=== PATIENT | male | born 1990 | race Caucasian/White ===

== ENCOUNTER 2022-10-10 08:50 | Emergency (ER) | payer OTHER, SELFPAY ==
[2022-10-10 09:00] VITALS: BP 149/75; PULSE 52; RESP 14; TEMP 36.6; O2SAT 97; BMI 38.5
--- NOTE | 2022-10-10 09:00 | XRR_ITS ---
PROCEDURE INFORMATION: Exam: XR Right Knee Exam date and time: 10/10/2022 9:36 AM Age: 31 years old Clinical indication: Injury or trauma; Fall; Blunt trauma; Knee; Right; Additional info: Trauma/injury/swelling TECHNIQUE: Imaging protocol: Radiologic exam of the Right knee. Views: 3 views. COMPARISON: No relevant prior studies available. FINDINGS: Bones/joints: There is fluid in the suprapatellar bursa. Patella is dislocated laterally. There is a 2 cm bony density projecting in the intercondylar notch of the femur could be fracture fragment off the patella. Soft tissues: Normal. XR/XR knee RT 3V* [id number] IMPRESSION: 1. The patella is dislocated laterally. 2. A 2 cm bony density projects on the intercondylar notch of the femur which may be fracture fragment off of the patella.
--- NOTE | 2022-10-10 09:01 | W.ED.LOWEXIN ---
Documented by User: THERESA Levin 10/10/22 12:47 HPI - Extremity Injury (Lower) General: Chief Complaint: Extremity Injury, Lower Stated Complaint: Knee Pain Time Seen by Provider: 10/10/22 08:54 Source: patient and EMS Mode of arrival: EMS Limitations: no limitations History of Present Illness: Patient is a 31-year-old male who presents to ED today evaluation of a right knee injury. Patient tells me 2 days ago he was walking in his house when he had his foot planted and he pivoted his right lower extremity. Patient states he immediately began noticing pain in his right knee but was able to continue to bear weight on the extremity throughout the evening. Patient states the following morning he began noticing worsening pain and limited weight bearing. He states last night when he rolled over in bed he heard a popping/grinding noise and when he woke up this morning he noticed quite a bit of discomfort in the knee and noticed fairly significant swelling. He reports he can no longer bear weight. He denies any other injuries or complaints at this time. complaint: knee injury Onset (ago): day(s) Injury: Right: knee Place: home Severity: moderate Relieving factors: immobilization Exacerbating factors: weight bearing, movement and palpation Associated symptoms: Reports inability to bear weight Other symptoms: none Review of Systems Const: Denies: fever(s), chills, body aches, fatigue or malaise Card: Denies: chest pain Resp: Denies: dyspnea GI: Denies: abdominal pain Musc: Reports: extremity swelling, joint pain (R knee) and joint swelling; Denies: neck pain, back pain, extremity pain or joint redness Skin/Breast: Denies: rash Neuro: Denies: numbness in extremities, weakness in extremities or sensory changes Physical Exam Const: COMMON NORMALS: no acute distress, patient oriented x3, no limitations and alert GENERAL APPEARANCE: cooperative NUTRITIONAL APPEARANCE: obese ORIENTATION/CONSCIOUSNESS: Yes awake, Yes oriented to person, Yes oriented to place and Yes oriented to time HENMT: COMMON NORMALS: normocephalic and atraumatic HEAD & SCALP: normal to inspection, normocephalic and atraumatic Resp: COMMON NORMALS: normal respiratory effort and clear to auscultation bilaterally AUSCULTATION: clear to auscultation bilaterally Cardio: COMMON NORMALS: regular rate and regular rhythm RATE: regular rate RHYTHM: regular rhythm Extremity: COMMON NORMALS: capillary refill normal GENERAL: Yes normal exam except as noted RIGHT LOWER EXTREMITY: Yes upper leg, Yes knee joint and Yes lower leg OTHER: pt has significant swelling to R knee joint and proximally and distally; compartments are still soft; I can feel what I believe to be his patella dislocated laterally but overall palpation of bony anatomy is difficult given the amount of swelling; ROM is limited secondary to swelling/pain; distal pulses and cap refill are normal along with sensation Neuro: F[place] COMA SCALE: document GCS findings [place] coma scale eye opening: Spontaneous [place] coma scale verbal response: Orientated [place] coma scale motor response: Obey commands [place] coma scale total score: 15 COMMON NORMALS: patient oriented x3, moves all extremities, no focal motor deficits and no sensory deficits noted SENSORIUM/ORIENTATION: Yes alert, Yes oriented to person, Yes oriented to place and Yes oriented to time Skin: COMMON NORMALS: no rashes or lesions noted GENERAL SKIN EXAM: no rashes or lesions noted TRAUMA: no lacerations or abrasions Course ED course: Patient with a lateral patellar dislocation. This will probably require conscious sedation for reduction. Dr. Chong will evaluate patient and assume care. Vital Signs: Vital signs: Vital Signs Temperature 97.8 F 10/10/22 09:00 Pulse Rate 58 L 10/10/22 09:31 Respiratory Rate 19 H 10/10/22 11:35 Blood Pressure 149/75 10/10/22 09:31 Pulse Oximetry 93 10/10/22 09:31 Oxygen Delivery Me thod 10/10/22 09:31 MDM - Extremity Injury (Lower) Medical Decision Making Dr. Chong evaluated patient and will assume care. Please refer to his note for procedural sedation/reduction portions. Lab Data Radiology Impressions Knee X-Ray 10/10/22 11:45 IMPRESSION: The patella is subluxed laterally but the position has improved since the previous radiographs. Discharge Plan Discharge Patient Disposition: Home Clinical Impression: Closed dislocation of right patella Condition: Stable Prescriptions: New hydrocodone-acetaminophen 5-325 mg tablet 1 tab PO Q6H PRN (Reason: pain) Qty: 10 0RF No Action Aleve 220 mg Tablet 660 mg PO BID PRN (Reason: Pain) Trent Back and Body 500-32.5 mg Tablet 2 tab PO Q6H PRN (Reason: Pain) Discharge Orders: Discharge ED (Routine); Ordered 10/10/22 Ordered By: Young Chong Referrals: Alec Fisher FNP [Primary Care Provider] - Discharge Diet: Usual diet Discharge Activity: Resume usual activity Patient Instructions: Opioid Safety, Pain Management Activity Restrictions/Additional Instructions: You were seen today for dislocated patella. We were able to reduce it because of length of time its been out it will not stay in place largely due to the amount of swelling. He should remain in the knee immobilizer nonweightbearing on the right leg with crutches. Case management make arrangements for follow-up with orthopedics. Coding Level of Care Code ED Exhaust And Muffler Fitter for Chg Fwd Exam Detailed Documented by User: Young Chong DO 10/10/22 12:55 HPI - Extremity Injury (Lower) General: Chief Complaint: Extremity Injury, Lower Stated Complaint: Knee Pain Time Seen by Provider: 10/10/22 08:54 Physical Exam Neuro: FAR[place] COMA SCALE: document GCS findings [place] coma scale total score: 15 Procedures Orthopedic Joint Reduction Joint #1: Time Out Performed: Yes Side: right Joint Reduction Location: knee/patella Analgesia: procedural sedation Technique used: direct manipulation Post-reduction neuro exam: intact Post-reduction vascular: intact Post Reduction X-Ray Obtained: Yes Post Reduction X-Ray Results: other (Position improved but continues to sublux out of position) Splint Applied: Yes Procedural Sedation Indication: fracture/dislocation reduction Fentanyl: IV Midazolam: IV Patient Tolerated Procedure: well Complications: none Interventions: airway repositioned Additional Comments: Patient had evidence of mild sleep apnea with conscious sedation. Jaw thrust maneuver used to maintain sats without any complications Course Vital Signs: Vital signs: Vital Signs Temperature 97.8 F 10/10/22 09:00 Pulse Rate 58 L 10/10/22 09:31 Respiratory Rate 19 H 10/10/22 11:35 Blood Pressure 149/75 10/10/22 09:31 Pulse Oximetry 93 10/10/22 09:31 Oxygen Delivery Me thod 10/10/22 09:31 MDM - Extremity Injury (Lower) Medical Decision Making Dr. Chong evaluated patient and will assume care. Please refer to his note for procedural sedation/reduction portions. Conscious sedation for reduction of patella can fully reduce it however it immediately subluxes out laterally and we not able to maintain it in good position. Patient was placed in knee immobilizer crutches nonweightbearing referral to orthopedics. Discussed with Dr. Zavaleta he concurs Medical Records I reviewed the patient's medical records. Lab Data I reviewed the patient's lab results. Radiology Impressions Knee X-Ray 10/10/22 11:45
[2022-10-10 09:31] VITALS: BP 149/75; PULSE 58; RESP 17; O2SAT 93
--- NOTE | 2022-10-10 09:47 | PC.PHAR ---
pt states he hasnt taken buspar 5mg tid last filled 04/15/22 30d/s and prozac 10mg hs last filled 04/20/22 30d/s states not taken for months
[2022-10-10 10:04] VITALS: RESP 18
[2022-10-10] MEDS: morphine 4 mg/mL SDV 1 mL IM (10:04)
[2022-10-10 11:35] VITALS: RESP 19
[2022-10-10] MEDS: midazolam 1 mg/mL INJ 2 mL 4 MG IVP (11:35)
[2022-10-10] MEDS: fentaNYL 50 mcg/mL INJ 2mL IVP (11:35)
--- NOTE | 2022-10-10 11:45 | XRR_ITS ---
PROCEDURE INFORMATION: Exam: XR Right Knee Exam date and time: 10/10/2022 11:46 AM Age: 31 years old Clinical indication: Screening exam; Post reduction TECHNIQUE: Imaging protocol: Radiologic exam of the Right knee. Views: 1 or 2 views. COMPARISON: CR XR knee RT 3V* [id number] 10/10/2022 9:36 AM FINDINGS: Bones/joints: The patella is subluxed laterally but the position has improved since the previous radiographs. No obvious fracture. Soft tissues: Normal. XR/XR knee RT 1-2V [id number] IMPRESSION: The patella is subluxed laterally but the position has improved since the previous radiographs.
[2022-10-10 12:51] VITALS: BP 120/74; PULSE 60; O2SAT 100
--- NOTE | 2022-10-10 13:59 | DCPLANNER ---
Addendum entered by Izzy Castellanos 10/12/22 13:35: Patient had a follow up appointment scheduled with ortho - patient did attend appointment. Original Note: care transitions manager had message to schedule a follow up appointment for patient with ortho. care transitions manager sent patients information to the front office staff at ortho. Patients information will be printed and reviewed. Clinic will call patient with appointment information.
== END 2022-10-10 12:54 | disposition home or self-care (01) ==
PROVIDERS: Emergency Provider Family Medicine; PCP Nurse Practitioner Family
DX: S83.004A Unspecified dislocation of right patella, initial encounter (principal); X50.1XXA Overexertion from prolonged static or awkward postures, initial encounter
CPT/HCPCS: 27560; 29530; 73560; 73562; 96372; 99285; E0114; J2250; J2270; J3010

== ENCOUNTER 2022-10-13 08:05 | Day surgery (SDC) | payer OTHER, SELFPAY ==
[2022-10-12 14:09] VITALS: BMI 38.5
[2022-10-13] VITALS (17 sets, daily range): BP systolic 102–153; BP diastolic 72–95; PULSE 67–93; RESP 14–19; TEMP 36.1–36.3; O2SAT 91–98
--- NOTE | 2022-10-13 | XR_ITS ---
WS: [id number] Right knee, C-arm fluoroscopy views, 10/13/2022 Clinical Data: ligament repair knee. or pic Comparison: Right knee, 10/10/2022 Findings: Dr. Zavaleta repaired a right knee ligament. XR/XR knee RT 1-2V [id number] Impression: Right knee ligament repair
[2022-10-13] MEDS: sodium chloride 0.9% 1,000 ML 30 ML IV (08:34)
[2022-10-13] MEDS: acetaminophen 500 mg Tablet 1000 MG PO (08:48)
[2022-10-13] MEDS: oxyCODONE 20 mg ER (12 HR) Tablet PO (08:48)
--- NOTE | 2022-10-13 08:55 | ANES.PREANE2 ---
Pre-Anesthetic Assessment Height/Weight: Height 1.88 m Weight 136.078 kg Temp Pulse Resp BP Pulse Ox O2 Del Method 97.1 F L 93 18 131/79 94 10/13/22 08:34 10/13/22 08:34 10/13/22 08:48 10/13/22 08:34 10/13/22 08:48 10/13/22 08:34 Preop Diagnosis: Patellar dislocation right knee Operation Date: 10/13/22 09:20 Proposed Procedures p Medial patellofemoral ligament reconstruction/ 08194 ,S83.004A(Right) - Santhosh Zavaleta MD Familial anesthetic complications: none Was Beta Mikey taken within 24 hours: N/A Was Clonidine taken within 24 hours: N/A Last intake: Intake Last Liquid Date 10/12/22 Last Liquid Time 20:00 Last Solid Date 10/12/22 Last Solid Time 20:00 Social No alcohol and No tobacco Exam alert, oriented x 3, clear to auscultation bilaterally and regular rate & rhythm Airway Submandibular: within normal limits Cervical ROM: within normal limits Mallampati: Class II Dentition: full History/ROS No significant history except as noted Anesthetic Plan ASA status: 1 Anesthesia: General and Regional (specify below) (adductor blk) Medications/Allergies Home Medications Medication Instructions Recorded Confirmed Last Taken Type aspirin-caffeine 500 mg-32.5 mg 2 tab PO Q6H PRN Pain 10/10/22 10/12/22 10/11/22 History tablet (Trent Back and Body) hydrocodone 5 mg-acetaminophen 325 1 tab PO Q6H PRN pain #10 tabs 10/10/22 10/13/22 10/13/22 07:20 Rx mg tablet naproxen sodium 220 mg tablet 660 mg PO BID PRN Pain 10/10/22 10/12/22 10/10/22 06:30 History (Aleve) Allergies Allergy/AdvReac Type Severity Reaction Status Date / Time Sulfa (Sulfonamide Allergy Mild ADR-Nausea Verified 10/13/22 08:25 Antibiotics) Current Medications Generic Name Dose Route Start Last Admin Trade Name Freq PRN Reason Stop Dose Admin Sodium Chloride 1,000 mls @ 30 mls/hr 10/13/22 08:30 10/13/22 08:34 Sodium Chloride 0.9% IV 10/14/22 08:29 30 mls/hr .Q24H BENOIT Administration Data Anesthesia Cardiac Studies: No Data to Display
--- NOTE | 2022-10-13 09:04 | W.PM.OPSUD ---
Surgery/Procedure H&P Update DATE OF PROCEDURE: October 13, 2022 DATE H&P PERFORMED: 10/12/22 H&P UPDATE INFORMATION: I have reviewed H&P completed within last 30 days PREOP DIAGNOSIS: Patellar dislocation right knee PLANNED PROCEDURE: Operation Date: 10/13/22 09:20 Proposed Procedures p Medial patellofemoral ligament reconstruction/ 95837 ,S83.004A(Right) - Santhosh Zavaleta MD
[2022-10-13] MEDS: ceFAZolin 2,000 MG in sodium chloride 0.9% (plus) 50 ML 100 MG IV (09:31)
--- NOTE | 2022-10-13 10:18 | ANES.PROC ---
Anesthesia Procedures Procedure/Date: 10/13/22 Nerve Block ^: Nerve Block 1: Main Anesthesia: general anesthesia Time Out Performed: Yes Consent: requested by attending/covering physician, from patient, risks and benefits reviewed and patient agrees to proceed Nerve block location: adductor canal (right) Anesthesia monitors applied: pulse oximetry, EKG, BP cuff and oxygen Nerve block position: supine Anesthetic Used: ropivicaine 0.5% Amount of anesthesia used (mL): 20 Ultrasound used to: recognize landmarks Nerve Stimulator Used?: No Interscalene/Femoral BLK: 4 stimuplex 21 g needle used for position and inplane approach Injection: neg aspiration of heme Patient Tolerated Procedure: well Complications: none
--- NOTE | 2022-10-13 12:03 | PM.OP ---
Operative Report Date of procedure: October 13, 2022 Pre-op diagnosis: Preop Diagnosis Patellar dislocation right knee Post-op diagnosis: same Post-op diagnosis: Right knee; Lateral instability patella, traumatic chondromalacia medial facet patella, complex tear lateral meniscus Procedure done: Right knee medial patellofemoral ligament reconstruction and medial retinacular repair, repair right lateral meniscus, chondroplasty medial facet patella Implants: Clark and Nephew 7 x 25 WOODARD screw; Clark and Nephew NovoStitch x1, Clark and Nephew Fast-Fix x3 Pathology: none sent Anesthesia: General and Nerve Block (Adductor canal block) Estimated blood loss (mL): 100 Complications: None Findings: Jj had clear instability of his patella to be manually dislocated with with the knee in extension. With arthroscopic portion of the procedure he had a substantial chondral defect of the medial facet of the patella involving the medial half of that facet with exposed subchondral bone. He had a complex tear of his lateral meniscus involving a horizontal cleavage tear beginning just medial to the popliteal hiatus and extending through the middle third of the lateral meniscus. There was a central unstable posteriorly based central flap. The horizontal cleavage went entirely to the peripheral margin. With the open portion of the procedure rent was noted in the vastus medialis insertion on the patella no significant ligamentous structure (MPFL) was identified to restrain lateral displacement of the patella Condition: stable Disposition: PACU Brief History: The patient is a 31-year-old male who sustained a patellar dislocation on 10/08/2022. He was seen in our emergency room were closed reduction was obtained however he had problems with recurrent instability despite bracing. He was taken to the operating room for reconstruction of his medial retinaculum and medial patellofemoral ligament to regain patellar instability. Diagnostic arthroscopy was performed to assess the status of the patella and trochlea with his history of a prolonged and recurrent dislocation and assess the status of the remainder of the knee. Procedure: The patient was taken to the operating room. He was given a adductor canal block and general anesthesia. He was given 2 g of Ancef. His right lower extremity was prepped and draped in the usual fashion. A timeout was performed. The knee was initially entered to the standard inferior medial and inferior lateral portal. The diagnostic portion of arthroscopy performed. The medial compartment was inspected and found to be healthy. The lateral compartment was was inspected revealing the complex horizontal cleavage tear in the lateral meniscus. The tear pattern was carefully inspected. It was found that the horizontal cleavage is is extended entirely back to capsule and that removal of all meniscus would result in essentially a loss of lateral meniscus. A small flap tear involving the central portion of the split was identified poor quality which was not thought to be compatible with repair. Initially an incisor shaver and Clark and Nephew Werewolf probe were used to debride back the unstable central flap. After removal of this flap we were left with a more stable inferior and superior leaf of the meniscus. The tear again went to the periphery and had adequate vascularity or repair was thought to be feasible. A Clark and Nephew NovoStitch was passed from the medial portal in a hay bale fashion directly overlying the popliteal hiatus drawing the superior to the inferior leaf down. A FasT-Fix was placed approximately 5 mm anterior with the most anterior extent of the tear and 2 additional FasT-Fix were placed just posterior and medial to the Clark and Nephew NovoStitch. The flaps were probed and found to be stable. Tension was then focused on the extensor mechanism. The tourniquet was inflated to 350 mmHg. A 4 cm long incision was made over the medial tibia with a scalpel blade and dissection carried down to the Pez anserine fascia. The fascia was split and a very well developed semitendinosus tendon was identified. It was freed from its insertion on the tibia. Utilizing a tendon stripper the tendon was harvested. On the back table the proximal end was freed of muscle and both ends were sutured with a braided suture. A for 6 cm long incision was made midway between the patella and medial femoral condyle and dissection carried down to the extensor retinaculum. Soft tissues were mobilized over the retinaculum proximally and distally. A deficiency was identified in the medial quadriceps insertion and retinacular insertion on the patella. The patella could then be displaced medially into the wound. A guidepin was driven from the medial patella up and out the anterior and superior patella. A Bonilla suture passer was used to shuttle sutures from our graft through the tunnel and the graft was passed through the bony tunnel. Hemostat was then passed beneath the vastus medialis musculature and the free ends of the tendon passed beneath the muscle. The 2 tendon ends could be passed snugly through a 6 mm tunnel. Utilizing fluoroscopy a perfect lateral of the distal femur was obtained. A guidepin was driven from [place] maximally and anteriorly across the femur. 6 mm tunnel was made over that guidepin. The free ends of the suture were passed through the tip of the guide pin and passed from [place] out the anterior lateral femur. Traction was placed on the sutures drawing the tendons into the bone and tightening the graft to wear the patella could be displaced no more than 50% of its width. 7 x 25 mm WOODARD screw was then passed over the tendons securing them to bone. The knee was brought through a full range of motion with normal patellar tracking. The tourniquet was then deflated. Deep medial tissues over the medial knee and medial tibia were closed with 0 Vicryl. Subcutaneous tissue closed with 2-0 Vicryl. The skin was closed with skin lila. Portals were closed with 3-0 Prolene. Xeroflo gauze 4 x 4's ABD pads, cotton padding, and Gary wrap were applied. The patient was placed back in his knee immobilizer extubated taken to recovery room in stable condition.
--- NOTE | 2022-10-13 12:11 | SUR.PHASEI ---
1202 PT TO PACU 5 PT SLEEPS WITH GOOD RESP EFFORT WITH ORAL AIRWAY IN PLACE, SATS 97% MONITOR SR WITH NO ECTOPY, RT THIGH TO ANKLE DRESSING D/I WITH STRONG REGULAR PULSE TO RT FOOT, DISTAL TOES PINK WARM WITH CAP REFILL LESS THAN 2 SECONDS. LEG IMMOBILIZER IN PLACE. IV TO LT HAND #20 WITH NS 100ML UP AT KVO RATE PER GRAVITY, PT ID BAND TO RT WRIST , PT ID'D WITH 2 IDENTIFIERS, 1210 PT AWAKES AND ORAL AIRWAY OUT PT REPOSITIONS SELF, AND C/O OF PAIN TO RT KNEE , DRSSING AND DISTAL FOOT UNCHANGED. SEE PAIN MED GIVEN IN OR , TOTAL OF 1.5 MG OF DILAUDID .
[2022-10-13] MEDS: ketorolac 30 mg/mL INJ IVP (12:30)
[2022-10-13] MEDS: HYDROmorphone 1 mg/mL INJ 1 mL 0.5 MG IVP (12:33)
--- NOTE | 2022-10-13 12:38 | SUR.PHASEI ---
1228 DR PATEL AT BEDSIDE, SEE PAIN MED ORDERS AND BEDSIDE ORDERS GIVEN TO START WITH DILAUDID FOR PAIN FIRST IN PHASE 1 PACU, SEE EARLIER DILAUDID GIVEN IN OR. DR PATEL AWARE.
[2022-10-13] MEDS: oxyCODONE 5 mg IR Tab/Cap PO (13:35)
[2022-10-13] MEDS: LORazepam 0.5 mg Tablet PO (13:59)
--- NOTE | 2022-10-13 15:14 | ANE.PACU2 ---
Inpatient post-anesthesia follow up: Airway intact: Yes Vital signs: Temperature 97 F Pulse Rate 72 Respiratory Rate 18 Blood Pressure 128/73 Pulse Oximetry 96 Oxygen Delivery Me thod Room Air Oxygen Flow Rate 8 Fraction of Inspir ed Oxygen Hydration adequate: Yes Nausea and vomiting: No Pain level: 3 Mental status: Baseline
== END 2022-10-13 14:40 | disposition home or self-care (01) ==
PROVIDERS: PCP Nurse Practitioner Family; Visit Provider Orthopaedic Surgery
PROC: (CPT 27427; principal; 2022-10-13 09:10)
PROC: (CPT 29882; 2022-10-13 09:10)
DX: S83.271A Complex tear of lateral meniscus, current injury, right knee, initial encounter (principal); S83.014A Lateral dislocation of right patella, initial encounter; M22.41 Chondromalacia patellae, right knee; X58.XXXA Exposure to other specified factors, initial encounter
CPT/HCPCS: 27420; 27428; 73560; 76000; C1713; J0690; J1100; J1170; J1885; J2250; J2405; J2704; J2710; J2795; J3010; J3490; J7030

== ENCOUNTER 2022-11-09 06:00 | Outpatient (RCR) | payer OTHER, SELFPAY | END 2022-12-06 23:59 | disposition home or self-care (01) | LOC: WPT 06:00 | PROVIDERS: PCP Nurse Practitioner Family; Visit Provider Orthopaedic Surgery | DX: Z47.89 Encounter for other orthopedic aftercare (principal) | CPT/HCPCS: 97110; 97112; 97116; 97161; 97530 ==

== ENCOUNTER 2022-12-07 06:00 | Outpatient (RCR) | payer OTHER, SELFPAY | END 2023-01-06 23:59 | disposition home or self-care (01) | LOC: WPT 06:00 | PROVIDERS: PCP Nurse Practitioner Family; Visit Provider Orthopaedic Surgery | DX: Z47.89 Encounter for other orthopedic aftercare (principal) | CPT/HCPCS: 97110; 97112; 97530 ==

== ENCOUNTER → 2023-10-20 10:00 | Outpatient (BNVA) | payer OTHER, SELFPAY | PROVIDERS: PCP Nurse Practitioner Family; Visit Provider Nurse Practitioner | DX: M25.552 Pain in left hip (principal); G89.29 Other chronic pain; M16.12 Unilateral primary osteoarthritis, left hip | CPT/HCPCS: 73502 ==

== ENCOUNTER → 2025-03-13 14:33 | Outpatient (BNVA) | payer MEDICAID, SELFPAY | PROVIDERS: PCP Nurse Practitioner Family; Visit Provider Nurse Practitioner Family | DX: M16.12 Unilateral primary osteoarthritis, left hip (principal); Z79.899 Other long term (current) drug therapy; Z13.6 Encounter for screening for cardiovascular disorders; R41.840 Attention and concentration deficit | CPT/HCPCS: 80061; 83036; 84443; 85025 ==

== ENCOUNTER 2025-04-29 21:50 | Emergency (ER) | payer MEDICAID, SELFPAY ==
--- OUTSIDE RECORDS SUMMARY | 2025-04-29 21:55 | XMS_ITS | Encounter Summary ---
Author Organization [facility] Address [address] [place] [address] Care Team Providers Care Pants Presser Name Role Phone Saritha De Leon MD Primary Care Provider Encounter Details Date Type Department Care Team (Latest Contact Info) Description 12/07/2004 Outpatient Historical [facility] Medicine [address] [address] Kyree Brewer, NO ADDRESS ON FILE ACUTE BRONCHITIS (Primary Dx); CIRCULATORY DISEASE NEC Social History Tobacco Use Types Packs/Day Years Used Date Smoking Tobacco: Never Assessed Sex and Gender Information Value Date Recorded Sex Assigned at Not on file Legal Sex Male 2:40 AM [employer] Gender Identity Not on file Sexual Orientation Not on file documented as of this encounter Plan of Treatment Not on file documented as of this encounter Visit Diagnoses Diagnosis Acute bronchitis- Primary Other specified circulatory system disorders documented in this encounter Care Teams Pants Presser Relationship Specialty Start Date End Date Saritha De Leon MD [address] [address] PCP - General Family Practice 11/14/13 documented as of this encounter
--- OUTSIDE RECORDS SUMMARY | 2025-04-29 21:55 | XMS_ITS | Clinical Summary ---
Author Organization [facility] Jonatan Leary ree Address [facility] [address] [place] [address] Care Team Providers Care Easement Worker Name Role Phone Saritha De Leon MD Primary Care Provider Allergies Active Allergy Reactions Criticality Noted Date Comments Sulfa (Sulfonamide Antibiotics) Rash Low 09/09 Medications ibuprofen (MOTRIN) 200 mg Oral tablet Take 800 mg by mouth 2 times daily. Active oxaprozin (DAYPRO) 600 mg Oral tabletIndication s:Pain in joint, multiple sites Take 2 Tabs by mouth daily. 60 Tab 3 03/16/2012 Active buPROPion HCl (WELLBUTRIN SR) 150 mg Sustained Release 12 hour tablet Take 1 Tab by mouth 2 times daily. 60 Tab 2 05/09/2014 Active Active Problems Problem Noted Date Diagnosed Date Other hammer toe (acquired) 11/01/2010 Contracture of tendon (sheath) 11/01/2010 Immunizations Immunization Administration Dates Next Due (ADACEL/BOOSTRIX)(10 YR UP) TDAP VACCINE, 0.5ML, IM 02/02/2017 (M-M-R II/PRIORIX)(12 MO UP) MEASLES, MUMPS AND RUBELLA VIRUS VACCINE, 0.5 ML IM/SUBCUT 02/15/1994 Dt Dtp Dtap Vaccine 02/15/1994, 3,04/28/1993,1992 HIB, Unspecified Formulation 02/15/1994,04/28/19 93,01/27/1993 Hepatitis B Vaccine 01/05/1996,02/24/1995 IPV/OPV 02/15/1994,04/28/1993,01/27/1993 Family History Medical History Relation Name Comments Healthy Father Healthy Maternal Grandfather Colon Cancer Maternal Grandmother Healthy Maternal Grandmother Healthy Mother Hypertension Paternal Grandfather Heart Disease Paternal Grandmother Breast Cancer Neg Hx Relation Name Status Comments Father Maternal Grandfather Maternal Grandmother Mother Paternal Grandfather Paternal Grandmother Social History Tobacco Use Types Packs/Day Years Used Date Smoking Tobacco: Never Smokeless Tobacco: Current Chew Comments:one can x 3 days Alcohol Use Standard Drinks/Week Comments No 0 (1 standard drink = 0.6 oz pur e alcohol) Sex and Gender Information Value Date Recorded Sex Assigned at Not on file 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 Gender Identity Not on file Sexual Orientation Not on file Last Filed Vital Signs Vital Sign Reading Time Taken Comments Blood Pressure 118/60 05/06/2014 2:11 PM CDT Pulse 74 05/06/2014 2:11 PM CDT Temperature 37 C (98.6 F) 05/06/2014 2:11 PM CDT Respiratory Rate 20 05/06/2014 2:11 PM CDT Oxygen Saturation 98% 05/06/2014 2:11 PM CDT Inhaled Oxygen Concentration - - Weight 105.2 kg (232 lb) 05/06/2014 2:11 PM CDT Height 182.2 cm (5' 11.75 ) 11/30/2011 10:03 AM 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 Body Mass Index 31.68 11/30/2011 10:03 AM 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 Plan of Treatment Health Maintenance Due Date Last Done Comments HEPATITIS B VACCINES (3 of 3 - 3-dose series) 03/01/1996 01/05/1996, 02/24/1995 HPV VACCINES (1 - Male 3-dos e series) 2007 Preventative Visit- Commercial 10/09/2024 INFLUENZA VACCINE (#1) 2025 DTAP/TDAP/TD VACCINES (6 - T d or Tdap) 02/02/2027 02/02/2017, 02/15/1994, 06/22/1993, Additional history exists Medical Devices Implanted Type Area Systems Librarian Device Identifier Shelf Expiration Date Model / Serial / Lot Wire K Trocar Dbl .[id number] Implanted:Qty: 1 on 12/17/2010 at [facility] Wire Right: Toe BRASSELER [facility] 07/19/2015 [id number] / / [id number] Description:right 1st, 2nd, 3rd, and 4th toes Insurance HE[employer] BS HE[employer] Advance Directives For more information, please contact: [phone] * Full Code (Latest Code Status on File) Date Activated Date Inactivated Comments 12/17/2010 10:43 AM 12/18/2010 2:32 AM * Full Code Date Activated Date Inactivated Comments 12/17/2010 7:50 AM 12/17/2010 10:43 AM Care Teams Easement Worker Relationship Specialty Start Date End Date Saritha De Leon MD [address] [address] PCP - General Family Practice 11/14/13
--- OUTSIDE RECORDS SUMMARY | 2025-04-29 21:55 | XMS_ITS | Encounter Summary ---
Author Organization [facility] Address [address] [place] [address] Care Team Providers Care Spinner Operator Name Role Phone Saritha De Leon MD Primary Care Provider Encounter Details Date Type Department Care Team (Latest Contact Info) Description 10/08/2003 Outpatient Historical [facility] Family Medicine- [address] [place] [phone] Richelle Reynaga MD NO ADDRESS ON FILE VIRAL WARTS NOS (Primary Dx) Social History Tobacco Use Types Packs/Day Years Used Date Smoking Tobacco: Never Assessed Sex and Gender Information Value Date Recorded Sex Assigned at Not on file 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
--- OUTSIDE RECORDS SUMMARY | 2025-04-29 21:55 | XMS_ITS | Encounter Summary ---
Author Organization [facility] Address [address] [place] [address] Care Team Providers Care Team Assistant Name Role Phone Saritha De Leon MD Primary Care Provider Encounter Details Date Type Department Care Team (Latest Contact Info) Description 05/16/2000 Outpatient Historical [facility] Family Medicine- [address] [place] [phone] Kyree Brewer, DO NO ADDRESS ON FILE Residual foreign body in soft tissue (Primary Dx) Social History Tobacco Use Types Packs/Day Years Used Date Smoking Tobacco: Never Assessed Sex and Gender Information Value Date Recorded Sex Assigned at Not on file 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
--- OUTSIDE RECORDS SUMMARY | 2025-04-29 21:55 | XMS_ITS | Encounter Summary ---
Author Organization [facility] Address [address] [place] [address] Care Team Providers Care Ceo & Co Founder Name Role Phone Saritha De Leon MD Primary Care Provider Encounter Details Date Type Department Care Team (Latest Contact Info) Description 06/09/2005 Outpatient Historical [facility] Medicine [address] [address] Richelle Reynaga MD NO ADDRESS ON FILE SPRAIN OF FOOT NOS (Primary Dx); SPRAIN OF ANKLE NOS Social History Tobacco Use Types Packs/Day Years Used Date Smoking Tobacco: Never Assessed Sex and Gender Information Value Date Recorded Sex Assigned at Not on file 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
--- OUTSIDE RECORDS SUMMARY | 2025-04-29 21:55 | XMS_ITS | Encounter Summary ---
Author Organization [facility] Address [address] [place] [facility] [place] [address] Care Team Providers Care Soybean Grower Name Role Phone Saritha De Leon MD Primary Care Provider Encounter Details Date Type Department Care Team (Latest Contact Info) Description 03/10/2004 Outpatient Historical [facility] Family Medicine- [address] [place] [phone] Bowen Blankenship NP NO ADDRESS ON FILE ACUTE PHARYNGITIS (Primary Dx); ACUTE LARYNGITIS WO OBSTRUCTION; ALLERGIC RHINITIS NOS Social History Tobacco Use Types Packs/Day Years Used Date Smoking Tobacco: Never Assessed Sex and Gender Information Value Date Recorded Sex Assigned at Not on file 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
--- OUTSIDE RECORDS SUMMARY | 2025-04-29 21:55 | XMS_ITS | Clinical Summary ---
Author Organization [employer] Address [address] [facility] Attn: Epic Prelude [address]T [place] [address] Care Team Providers Care Primary School Principal Name Role Phone Ramone Michelle MD Primary Care Provider [phone] Allergies Active Allergy Reactions Criticality Noted Date Comments Sulfa (Sulfonamide Antibiotics) Rash Low 09/09 Medications polyethylene glycol 3350 (Miralax) 17 gram/dose Powder Take 1 Scoop (17 Grams) by mouth daily. Dissolve in 8 ounces of fluid and drink entire liquid 510 Gram 12/23/2024 4:35 PM CDT 12/23/2024 Active tranexamic acid (LYSTEDA) 650 mg Tablet tablet Take 3 Tablets (1,950 mg) by mouth daily after supper. 9 Tablet 12/23/2024 4:35 PM CDT 12/23/2024 Active honey (MediHoney, honey,) 100 % Paste Apply once daily as directed. 44 mL 01/17/2025 3:34 PM CDT 01/17/2025 Active Active Problems Problem Noted Date Diagnosed Date Preoperative general physical examination 2024 Obesity (BMI 30.0-34.9) 12/05/2024 Past history of chewing tobacco use 12/05/2024 Muscle spasm 12/05/2024 Primary osteoarthritis of left hip 07/19/2023 Contracture of tendon (sheath) 11/01/2010 Other hammer toe (acquired) 11/01/2010 Resolved Problems Problem Noted Date Diagnosed Date Resolved Date Body mass index (BMI) 40.0-44.9, adult 11/21/2022 12/05/2024 Encounters Date Type Department Care Team Description 04/08/2025 External Device Data ST[facility] ABSTRACTION Provider, Abstract 04/08/2025 External Device Data Initial Department [address] [facility] [address] ROY: [place] [address] Sebastian Gonzalez Md 03/26/2025 External Device Data [facility] ABSTRACTION Provider, Abstract 02/27/2025 External Device Data [facility] ABSTRACTION Provider, Abstract 02/26/2025 External Device Data [facility] ABSTRACTION Provider, Abstract 02/11/2025 External Device Data [facility] ABSTRACTION Provider, Abstract 01/30/2025 Orders Only [facility] [place] [address] [place] [address] Chris Dixon MD 01/28/2025 Refill [place] [address] [place] [phone] Lavelle Garcia MD History of total left hip replacement 01/28/2025 Telephone [place] [address] [place] [phone] Laevlle Garcia MD Medication Refill from Last 3 Months Immunizations Immunization Administration Dates Next Due (ADACEL/BOOSTRIX)(10 YR UP) TDAP VACCINE, 0.5ML, IM 02/17/2023,02/02/2017,01/01/2010 (INFANRIX)(6 WKS-6 YRS) DIPT HERIA, TETANUS TOXOIDS, AND ACCELLULAR PERTUSSIS VACCINE (DTAP), 0.5 ML IM 02/15/1994,06/22/1993,04/28/1993,01/27 (IPOL)(6 WKS AND UP) POLIOVI BLADIMIR VACCINE, INACTIVATED (IPV), 3 DOSE, SUBCUT OR IM 02/15/1994,04/28/1993,01/27/1993 (M-M-R II/PRIORIX)(12 MO UP) MEASLES, MUMPS AND RUBELLA VIRUS VACCINE, 0.5 ML IM/SUBCUT 02/15/1994 Dt Dtp Dtap Vaccine 02/15/1994, 3,04/28/1993,01/27 HIB, Unspecified Formulation 02/15/1994,04/28/19 93,01/27/1993 Hemophilus influenza b vacci ne (Hib), HbOC conjugate (4 dose schedule), for intramuscular use 02/15/1994,04/28/1993,01/27/1993 Hepatitis B Vaccine 01/05/1996,02/24/1995 Hepatitis B Vaccine, Unspeci fied Formulation 01/05/1996,02/24/1995 IPV/OPV 02/15/1994,04/28/1993,01/27/1993 Poliovirus Vaccine Live Oral 02/15/1994,04/28/19 93,01/27/1993 Family History Medical History Relation Name Comments Healthy Father Healthy Maternal Grandfather Colon Cancer Maternal Grandmother Healthy Maternal Grandmother Healthy Mother Hypertension Paternal Grandfather Heart Disease Paternal Grandmother Breast Cancer Neg Hx Relation Name Status Comments Father Alive Maternal Grandfather Maternal Grandmother Mother Alive Paternal Grandfather Paternal Grandmother Social History Tobacco Use Types Packs/Day Years Used Date Smoking Tobacco: Never Smokeless Tobacco: Former Chew Quit: 01/08/2024 Tobacco Cessation:Counseling Given: Not Answered Comments:Chewed 15 years (reviewed 12/05/24) Alcohol Use Standard Drinks/Week Comments Yes 0 (1 standard drink = 0.6 oz pur e alcohol) occassionally Sex and Gender Information Value Date Recorded Sex Assigned at Not on file 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 Gender Identity Not on file Sexual Orientation Not on file Last Filed Vital Signs Vital Sign Reading Time Taken Comments Blood Pressure 130/80 01/17/2025 2:21 PM CDT Pulse 69 12/23/2024 5:08 PM CDT Temperature 36.6 C (97.9 F) 12/23/2024 5:08 PM CDT Respiratory Rate 16 12/23/2024 5:08 PM CDT Oxygen Saturation 97% 12/23/2024 5:08 PM CDT Inhaled Oxygen Concentration - - Weight 124.3 kg (274 lb) 01/17/2025 2:21 PM CDT Height 188 cm (6' 2 ) 01/17/2025 2:21 PM CDT Body Mass Index 35.18 01/17/2025 2:21 PM CDT Plan of Treatment Upcoming Encounters Date Type Department Care Team (Late st Contact Info) Description 05/02/2025 11:00 AM CDT Office Visit [facility] Orthopedics - [facility]opedic [facility] [address] [phone] Crhis Dixon MD [address] [phone] Health Maintenance Due Date Last Done Comments HEPATITIS B VACCINES (4 of 4 - 4-dose series) 03/01/1996 01/05/1996, 01/05/1996, 02/24/1995, Additional history exists HPV VACCINES (1 - Male 3-dos e series) 2007 Preventative Visit-Managed Medicaid 2011 INFLUENZA VACCINE (#1) 2025 07/19/2023 DTAP/TDAP/TD VACCINES (8 - T d or Tdap) 02/17/2033 02/17/2023, 02/02/2017, 01/01/2010, Additional history exists Medical Devices Implanted Type Area Trade Embalmer Device Identifier Shelf Expiration Date Model / Serial / Lot Liner Emphasys Poly 56-36b33nt Acet Aox Neutral 4722-56-040 - [id number] Implanted:Qty: 1 on 12/23/2024 by Chris Dixon MD at [facility] Hip Left: Hip [employer] [id number] 10/08/2029 4722-56-040 / / [id number] Shell Emphasys 58mm 3hl Acet Cmntls 4710-58-300 - [id number] Implanted:Qty: 1 on 12/23/2024 by Chris Dixon MD at [facility] Hip Left: Hip [employer] [id number] 11/08/2034 [id number] / / [id number] Stem Fem Actis Hi Colr Sz7 1010-12-070 - [id number] Implanted:Qty: 1 on 12/23/2024 by Chris Dixon MD at [facility] Hip Left: Hip [employer] [id number] 11/08/2034 1010-12-070 / / [id number] Head Fem Cer 09/21 40mm 2488-40-391 - [id number] Implanted:Qty: 1 on 12/23/2024 by Chris Dixon MD at [facility] Hip Left: Hip [employer] [id number] 10/08/2029 1365-40-720 / / [id number] Wire K Trocar Dbl .045x9 [id number] Implanted:Qty: 1 on 12/17/2010 Wire Right: Toe BRASSELER [facility] 07/19/2015 [id number] / / [id number] Description:right 1st, 2nd, 3rd, and 4th toes Insurance [address] [place] [address] RX INFOCROSSING Medicaid Advance Directives For more information, please contact: [phone] * Full Code (Latest Code Status on File) Date Activated Date Inactivated Comments 12/23/2024 2:35 PM 12/23/2024 7:50 PM * Full Code Date Activated Date Inactivated Comments 12/23/2024 9:43 AM 12/23/2024 2:35 PM * Full Code Date Activated Date Inactivated Comments 12/23/2024 9:10 AM 12/23/2024 9:43 AM Care Teams Primary School Principal Relationship Specialty Start Date End Date Ramone Michelle MD [address] [phone] PCP - General Family Practice 11/21/22
[2025-04-29 22:00] VITALS: BP 127/62; PULSE 64; RESP 16; TEMP 36.6; O2SAT 99; BMI 35.9
--- NOTE | 2025-04-29 22:41 | USR_ITS ---
PROCEDURE INFORMATION: Exam: US Duplex Right Lower Extremity Veins, Limited Exam date and time: 04/29/2025 11:05 PM Age: 34 years old Clinical indication: Edema, localized; Lower extremity, right; Prior surgery; Surgery date: 6+ months; Surgery type: Patellar surgery 2020; Additional info: Right leg edema TECHNIQUE: Imaging protocol: Real-time duplex ultrasound of the right extremity with 2-D gar scale, color Doppler flow and spectral waveform analysis including responses to compression and other maneuvers (when performed) with image documentation. Limited exam was focused on the right lower extremity veins. COMPARISON: CR (LOW EXM, ) 04/29/2025 10:53 PM FINDINGS: Right deep veins: Unremarkable. The common femoral, femoral, proximal profunda femoral and popliteal veins are patent without thrombus. Normal Doppler waveforms. Normal compressibility and/or augmentation response. Superficial veins: Greater saphenous vein at the saphenofemoral junction is patent without thrombus. Soft tissues: Unremarkable. US/[place] [id number] IMPRESSION: No evidence of deep vein thrombosis.
--- NOTE | 2025-04-29 22:42 | XRR_ITS ---
PROCEDURE INFORMATION: Exam: XR Right Femur Exam date and time: 04/29/2025 10:53 PM Age: 34 years old Clinical indication: Injury or trauma; Other: Twisted; Other: Pain; Additional info: Right leg swelling and pain TECHNIQUE: Imaging protocol: Radiologic exam of the right femur. Views: 2 views. COMPARISON: OT XR knee RT 1-2V [id number] 10/13/2022 11:32 AM FINDINGS: Bones/joints: Unremarkable. No acute fracture. Soft tissues: Unremarkable. XR/XR femur RT min 2V* [id number] IMPRESSION: No acute findings.
--- NOTE | 2025-04-29 22:47 | W.ED.EXTPRO ---
HPI - Extremity Problem General: Chief complaint: Extremity Injury, Lower Stated complaint: Pulled something RT leg Time Seen by Provider: 04/29/25 22:35 History of Present Illness: Patient is a 34-year-old male without previous medical history, reports to ED with right upper leg swelling. Patient stated he did the splits on 04/23, and has had increasing swelling, pain to his right upper leg. He is having difficulty with moving, ambulating, positioning. He does have a lot of ecchymosis in this leg. Associated symptoms: Deny chest pain or fever(s) Related Data Previous Rx's ?Medication ?Instructions ?Recorded celecoxib 100 mg capsule (Celebrex) 100 mg PO BID #60 caps 10/20/23 atomoxetine 40 mg capsule See Rx Instructions PO DAILY #60 03/13/25 (Strattera) caps diclofenac sodium 75 mg 75 mg PO BID PRN pain #30 tabs 04/29/25 tablet,delayed release Allergies Allergy/AdvReac Type Severity Reaction Status Date / Time Sulfa (Sulfonamide Allergy Mild ADR-Nausea Verified 03/13/25 13:59 Antibiotics) Review of Systems General: Reports: 10 or more systems reviewed and unremarkable except in HPI and below Const: Denies: fever(s) or chills Eyes: Denies: change in vision or blurry vision ENMT: Denies: throat pain Card: Denies: chest pain or palpitations Resp: Denies: dyspnea or productive cough GI: Denies: abdominal pain, nausea or vomiting : Denies: flank pain or difficulty urinating Musc: Reports: joint swelling, joint stiffness, limited range of motion and muscle cramps; Denies: neck pain or back pain Neuro: Denies: headache(s) or numbness in extremities PFSH ED PFSH: Medical History (Updated 04/29/25 @ 23:47 by THERESA Duggan) Chronic hip pain Chronic back pain Attention and concentration deficit Encounter for screening for cardiovascular disorders Medication management Primary osteoarthritis of left hip Chronic left hip pain Surgical History (Updated 03/13/25 @ 14:38 by KEARA Mera) History of left hip replacement Social History Smoking and tobacco/nicotine status: never used tobacco/nicotine Physical Exam Const: COMMON NORMALS: no acute distress, average body habitus and patient oriented x3 HENMT: COMMON NORMALS: normocephalic and atraumatic HEAD & SCALP: normocephalic and atraumatic Lymph: LYMPHATIC: no lymphadenopathy noted Chest: COMMONS NORMALS: normal inspection of the chest and normal palpation of entire chest wall Resp: COMMON NORMALS: normal respiratory effort, No retractions and clear to auscultation bilaterally AUSCULTATION: clear to auscultation bilaterally Cardio: COMMON NORMALS: regular rate and regular rhythm RATE: regular rate RHYTHM: regular rhythm GI: COMMON NORMALS: Normal to inspection, nondistended, normoactive bowel sounds present and Soft to palpation PALPATION: Yes Soft to palpation : COMMON NORMALS: Yes no CVA tenderness BLADDER/KIDNEY EXAM: Yes no CVA tenderness Back/Pelvis: COMMON NORMALS: no CVA tenderness Extremity: RIGHT LOWER EXTREMITY: Yes upper leg Right upper leg: Yes inspection (Ecchymosis posterior and edema approximately) and Yes palpation (Pain with palpation) Neuro: COMMON NORMALS: patient oriented x3, CN's II-XII intact bilaterally and moves all extremities Psych: COMMON NORMALS: mental status grossly normal and Normal thought process present THOUGHT PROCESS: Normal thought process present Course Vital Signs: Vital signs: Vital Signs Temperature 97.9 F 04/29/25 22:00 Pulse Rate 64 04/29/25 22:00 Respiratory Rate 16 04/29/25 22:00 Blood Pressure 127/62 04/29/25 22:00 Pulse Oximetry 99 04/29/25 22:00 Oxygen Delivery Me thod Room Air 04/29/25 22:00 MDM - Extremity (Nontraumatic) Medical Decision Making Patient is a 34-year-old male with injury to right upper leg, increasing edema, increasing ecchymosis. Differential includes quadricep intervention rupture versus DVT versus fracture versus simple hematoma. Medical Records I reviewed the patient's medical records. Lab Data I reviewed the patient's lab results. Radiology Impressions Venous Duplex 04/29/25 22:41 IMPRESSION: No evidence of deep vein thrombosis. Femur X-Ray 04/29/25 22:42 IMPRESSION: No acute findings. All radiology interpretation(s) finalized by discharge ED provider radiology interpretation(s): no acute Discharge Plan Discharge Patient Disposition: Home Clinical Impression: Acute pain of right lower extremity, Hematoma Condition: Stable Prescriptions: New diclofenac sodium 75 mg tablet,delayed release (DR/EC) 75 mg PO BID PRN (Reason: pain) Qty: 30 0RF No Action celecoxib [Celebrex] 100 mg capsule 100 mg PO BID Qty: 60 3RF atomoxetine [Strattera] 40 mg capsule See Rx Instructions PO DAILY Qty: 60 0RF Rx Instructions: take one tablet daily for one week, then two tabs daily orally daily; Discharge Orders: Discharge ED (Routine); Ordered 04/29/25 Ordered By: Leatha Coates Referrals: David Fisher FNP [Primary Care Provider, Family Practice] Discharge Diet: Usual diet Discharge Activity: Limit activity as instructed Patient Instructions: Patient Portal & Cecelia Instructions, Hematoma (ED) Activity Restrictions/Additional Instructions: Gary wrap to lower extremity of right leg. You may ice this area. You may use Jesus for wound care. This is a drink that will help bruises heal. Arnica is another rub on you can obtain [id number]. Return to ED for worsening redness, worsening swelling, or temperature greater than 100.4 ?F Print Language: Kinyarwanda Coding Level of Care Code ED Project Manager Entertainment And Media for Reta Ng
[2025-04-30] MEDS: orphenadrine 30 mg/mL Inj 2 mL 60 MG IM (00:03)
[2025-04-30 00:20] VITALS: BP 121/61; PULSE 54; RESP 17; O2SAT 98
== END 2025-04-30 00:26 | disposition home or self-care (01) ==
PROVIDERS: Emergency Provider Physician Assistant; PCP Nurse Practitioner Family
DX: M79.604 Pain in right leg (principal); S80.11XA Contusion of right lower leg, initial encounter; X58.XXXA Exposure to other specified factors, initial encounter
CPT/HCPCS: 73552; 93971; 96372; 99284; J1885; J2360